=== PATIENT | male | born 1940 | race Caucasian/White ===

== ENCOUNTER 2017-02-26 21:06 | Outpatient (CLI) | payer MEDICARE ==
[~2017-02-26 21:06] MED LIST: ACETONIDE CREAM; ALLERGY SHOTS INJ; ASP81CT; ASPI-875 PO; ATN50T; Amiodarone Hcl PO; Atorvastatin Calcium PO; CALC-671 PO; CARB1DRO OU; CEPH-507 PO; CETI-156 PO; CETI10CA PO; CETI10TA17 PO; CIME200T86 PO; CIME300T49 PO; CLOB15CR2 TP; CORTISONE TP; CYCL10TA9 PO; DGX.125T PO; DOCU-143 PO; ENLP10T; FAMO20TA73 PO; FAMO40OR3 PO; HCT25T PO; HYDR-3156 PO; IRBE300T9 PO; KCL10CCR; KCL20TCR PO; LACT1CAP66 PO; LISI10TA2 PO; LISI40TA PO; LOSARTAN; LRT10T; LVT.1T PO; METO25TA PO; METO5TAB75 PO; MULT-974 PO; NFBIOT1000; NFD60TCR; NFNEB10T PO; OMEG1CAP24 PO; OXYC-197 PO; PNT40TEC PO; PRAS10TA6 PO; PRED2.5T4 PO; PRED5TAB PO; Rivaroxaban PO; SMV10T; SMV20T PO; TICA90TA PO; TR1C15 TOP; TR1O15; TRAM-21 PO; TRAM50TA2 PO
== END 2017-02-27 05:55 | disposition home or self-care (01) ==
LOC: SLEEP 21:06
PROVIDERS: ATTEND Nurse Practitioner Family
DX: G47.33 Obstructive sleep apnea (adult) (pediatric) (principal); G47.31 Primary central sleep apnea
CPT/HCPCS: 95811

== ENCOUNTER → 2017-04-21 | Outpatient (CLI) | payer MEDICARE | LOC: RAD 12:30 | PROVIDERS: ATTEND Otolaryngology Otolaryngology/Facial Plastic Surgery | DX: G47.33 Obstructive sleep apnea (adult) (pediatric) (principal) ==

== ENCOUNTER → 2017-06-09 | Outpatient (CLI) | payer MEDICARE | LOC: CARD 07:38 | PROVIDERS: ATTEND Physician Assistant | DX: I48.0 Paroxysmal atrial fibrillation (principal); R00.1 Bradycardia, unspecified; I25.10 Atherosclerotic heart disease of native coronary artery without angina pectoris; R53.83 Other fatigue | CPT/HCPCS: 93306 ==

== ENCOUNTER → 2017-06-25 | Outpatient (CLI) | payer MEDICARE ==
[~2017-06-25] MED LIST changes: +CATHETER FLUSH 10 ML SYR IV PRN; +REGADENOSON 0.4 MG/5 ML SYR (LEXISCAN) IV ONE
[2017-06-25 09:04] VITALS: BP 146/73
[2017-06-25 09:14] VITALS: BP 151/66
[2017-06-25 09:17] VITALS: BP 152/73
--- NOTE | 2017-06-26 08:31 | STRESS TEST ---
DATE OF SERVICE: LEXISCAN MYOVEIW STRESS REPORT REFERRING PHYSICIAN: Dr. Cevallos Baseline heart rate is 51. Baseline blood pressure 146/73. Baseline EKG is sinus rhythm with no ischemic changes. In summary, the patient was injected with 10.67 mCi of technetium-99 Myoview and the resting images were obtained. Then, the patient received 0.4 mg of LexiScan followed by 30.3 mCi of technetium-99 Myoview. Throughout the test, there were no EKG changes. The resting and stress images were reviewed and compared in the short axis, horizontal, long axis, and vertical long axis views. Review of the images showed fixed defect involving the true apex, mild reversible ischemia involving the mid to apical anterolateral wall and inferolateral wall. SSS is 9, SDS 5, TID value 0.86. On the gated images, the left ventricle appeared to be in normal size. The apex is montrell normally. Calculated ejection fraction is 66%. CONCLUSION: 1. The patient tolerated LexiScan well. 2. Fixed defect involving the true apex with mild ischemia involving the mid to apical anterolateral and inferolateral wall. 3. Normal left ventricular size with normal contractility. The apex is montrell normally. Calculated ejection fraction 66%. Job ID: [id number] DocumentID: [id number] Dictated Date: 06/25/2017 14:09:51 Field Service Technician Poultry Date: 06/25/2017 14:46:09 Dictated By: CEE GRAHAM MD
== END ==
LOC: CARD 07:13
PROVIDERS: ATTEND Physician Assistant
DX: I48.0 Paroxysmal atrial fibrillation (principal); R00.1 Bradycardia, unspecified; I25.10 Atherosclerotic heart disease of native coronary artery without angina pectoris; R53.83 Other fatigue
CPT/HCPCS: 78452; 93017

== ENCOUNTER 2017-11-05 09:21 | Emergency (ER) | payer MEDICARE ==
[~2017-11-05] VITALS: Ht 177.8 cm; Wt 83.9 kg
[~2017-11-05 09:21] MED LIST changes: -CATHETER FLUSH 10 ML SYR IV PRN; -REGADENOSON 0.4 MG/5 ML SYR (LEXISCAN) IV ONE
[2017-11-05 10:06] LABS: BASOPHILS % (AUTO) 1 % (0-10); EOSINOPHILS # (AUTO) 0.2 10^3/uL (0.0-0.3); EOSINOPHILS % (AUTO) 3 % (0-10); HEMATOCRIT 36 % (40-54); HEMOGLOBIN 12.1 G/DL (13.3-17.7); LYMPHOCYTES # (AUTO) 1.2 X 10^3 (1.0-4.0); LYMPHOCYTES % (AUTO) 15 % (12-44); MEAN CORPUSCULAR HEMOGLOBIN 30 PG (25-34); MEAN CORPUSCULAR HGB CONC 34 G/DL (32-36); MEAN CORPUSCULAR VOLUME 88 FL (80-99); MEAN PLATELET VOLUME 9.3 FL (7.4-10.4); MONOCYTES # (AUTO) 0.8 X 10^3 (0.0-1.0); MONOCYTES % (AUTO) 10 % (0-12); NEUTROPHILS # (AUTO) 5.8 X 10^3 (1.8-7.8); NEUTROPHILS % (AUTO) 72 % (42-75); PLATELET COUNT 296 10^3/uL (130-400); RED BLOOD COUNT 4.04 10^6/uL (4.35-5.85); RED CELL DISTRIBUTION WIDTH 13.6 % (10.0-14.5); WHITE BLOOD COUNT 8.1 10^3/uL (4.3-11.0)
--- NOTE | 2017-11-05 10:16 | ED General ---
General Chief Complaint: Cardiac/General Problems Stated Complaint: LOW BP Nursing Triage Note: ARRIVED VIA AMB TO ROOM 05. STATES HE TOOK HIS BP MED THIS AM THEN AT 0800 HE STARTED TO FEEL LIGHT HEADED ET BP WAS LOW. STATES HE NO LONGER FEELS LIGHT HEADED. Nursing Sepsis Screen: No Definite Risk Source of Information: Patient, Spouse History of Present Illness Time Seen by Provider: 09:35 Initial Comments PT ARRIVES VIA POV FROM HOME STATES HIS BLOOD PRESSURE HAS BEEN LOW THIS MORNING STATES HE TOOK ALL HIS REGULAR MORNING MEDICATIONS AROUND 0730, THEN NOTICED HIS BP WAS LOW BETWEEN 0800 AND 0830--MULTIPLE READINGS OF 83/53, 67/46, 75/46, 69/44 PT STATES HE FELT SLIGHTLY LIGHT HEADED AND LOW ENERGY THIS AM, BUT STATES HE HAS "BEEN HAVING ROUGH NIGHTS" SINCE HE BIT THE INSIDE OF HIS MOUTH ON FRIDAY, AND PAIN SEEMS TO BE WORSE AT NIGHT--LEFT SIDE OF FACE WAS SWOLLEN, BUT NOT NOW. SAW DENTIST ON Friday11/03/17--NO RX OR TREATMENT GIVEN. ALL THOSE SYMPTOMS OF LIGHTHEADEDNESS AND DECREASED ENERGY HAVE NOW RESOLVED NO CHEST PAIN NO SHORTNESS OF BREATH NO PALPITATIONS--HAS HISTORY OF ATRIAL FIBRILLATION AND IS ON ASPIRIN AND XARELTO NO SWEATS NO NAUSEA/VOMITING NO RECENT ILLNESS, FEVER, ETC. NO HEADACHE OR VISION CHANGES NO PARESTHESIAS OR MOTOR DEFICITS PT HAS HISTORY OF THIS SAME PROBLEM, AND HAS CORRECTED ITSELF IN AN HOUR, WHICH IS WHAT IT HAS DONE TODAY THIS IS NOT ANY DIFFERENT THAN WHAT HE HAS HAD IN THE PAST CALLED 'S OFFICE THIS AM, AND THEY TOLD HIM TO COME TO ER. PCP: SOLAR FABRICATION TECHNICIAN: DR. GRAHAM Allergies and Home Medications Allergies Coded Allergies: Iodinated Contrast Media - IV Dye (Verified Allergy, Unknown, 08/25/15) amlodipine (Verified Allergy, Unknown, 07/19/14) diltiazem (Verified Allergy, Unknown, 07/19/14) merbromin (Verified Allergy, Unknown, 12/28/08) neomycin (Verified Allergy, Unknown, 12/28/08) nifedipine (Verified Allergy, Unknown, 07/19/14) thimerosal (Verified Allergy, Unknown, 12/28/08) Uncoded Allergies: BESYLATE (Allergy, Unknown, 07/19/14) Home Medications Aspirin 81 Mg Tablet., 81 MG PO HS, (Reported) Calcium Carbonate/Vitamin D3 1 Each Tablet, 1 EACH PO DAILY, (Reported) Cephalexin 500 Mg Capsule, 500 MG PO TID, #21 Ref 0 Prescribed by: LEORA GUZMAN on 08/27/152352 Cetirizine Hcl 10 Mg Capsule, 10 MG PO BID, (Reported) Cyclobenzaprine HCl 10 Mg Tablet, 10 MG PO Q8H PRN for SPASMS, #14 Ref 0 Prescribed by: LEORA GUZMAN on 08/27/152352 Docusate Sodium 100 Mg Capsule, 100 MG PO DAILY, #30 Prescribed by: JEAN LCAUDE LANGLEY on 08/25/15453 Famotidine 20 Mg Tablet, 20 MG PO BID, (Reported) Hydralazine Hcl 25 Mg Tablet, 25 MG PO TID, (Reported) Hydrochlorothiazide 25 Mg Tab, 25 MG PO DAILY, (Reported) Irbesartan 300 Mg Tablet, 300 MG PO DAILY, (Reported) Lactobacillus Combination No.4 1 Each Capsule, 1 CAP PO 1200, (Reported) Levothyroxine Sodium 100 Mcg Tablet, 100 MCG PO DAILY, (Reported) Lisinopril 40 Mg Tablet, 40 MG PO DAILY, (Reported) Metoclopramide HCl 5 Mg Tablet, 5-10 MG PO Q6H PRN for NAUSEA, #30 Ref 0 Prescribed by: LEORA GUZMAN on 08/27/152352 Metoprolol Succinate 25 Mg Tab.sr.24h, 25 MG PO DAILY, (Reported) Multivitamin 1 Each Tablet, 1 TAB PO NOON, (Reported) Oxycodone HCl/Acetaminophen 1 Each Tablet, 1 EACH PO Q4H PRN for PAIN, #30 Prescribed by: JEAN CLAUDE LANGLEY on 08/25/15453 Pantoprazole Sod 40 Mg Tab, 40 MG PO DAILY@0700, #30 Ref 3 Prescribed by: CEE GRAHAM on 12/07/14 1016 Potassium Chloride 20 Meq Tab, 10 MEQ PO DAILY@0700, #30 Ref 3 Prescribed by: CEE GRAHAM on 12/07/14 1016 Prednisone 5 Mg Tablet, 4 MG PO UD, (Reported) Tramadol HCl 50 Mg Tablet, 1-2 TAB PO Q4H PRN for PAIN, #40 Ref 0 Prescribed by: LEORA GUZMAN on 08/27/152352 [Amiodarone Hcl] 200 MG TAB, 400 MG PO BID, #60 Ref 2 Prescribed by: CEE GRAHAM on 12/07/14 1016 [Atorvastatin Calcium] 80 MG TABLET, 80 MG PO HS, #30 Ref 3 Prescribed by: CEE GRAHAM on 12/07/14 1016 [Rivaroxaban] 20 MG TABLET, 20 MG PO DAILY@1700, #30 Ref 3 Prescribed by: CEE GRAHAM on 12/07/14 1016 Constitutional: see HPI, dizziness, malaise, weakness EENTM: see HPI Respiratory: no symptoms reported Cardiovascular: see HPI Gastrointestinal: no symptoms reported Genitourinary: no symptoms reported Musculoskeletal: no symptoms reported Skin: no symptoms reported Psychiatric/Neurological: No Symptoms Reported, Denies Headache, Denies Numbness, Denies Paresthesia, Denies Seizure, Denies Tingling, Denies Tremors, Denies Weakness Hematologic/Lymphatic: No Symptoms Reported Immunological/Allergic: no symptoms reported Past Lhfmtnm-Pyqmhv-Prmzwf Hx Patient Social History Alcohol Use: Denies Use Recreational Drug Use: No Smoking Status: Never a Smoker Recent Foreign Travel: No Contact w/Someone Who Travel: No Recent Infectious Disease Expo: No Recent Hopitalizations: No Immunizations Up To Date Tetanus Booster (TDap): Unknown Date of Pneumonia Vaccine: Sep 01, 2007 Date of Influenza Vaccine: Jul 27, 2014 Seasonal Allergies Seasonal Allergies: Yes Surgeries History of Surgeries: Yes (STENT) Surgeries: Cardiac, Coronary Stent Respiratory History of Respiratory Disorde: Yes (ALLERGIES THAT LEADS TO ASTHMA AT TIMES) Respiratory Disorders: Asthma Cardiovascular History of Cardiac Disorders: Yes (STENT) Cardiac Disorders: Atrial Fibrillation, Coronary Artery Disease, Heart Attack, High Cholesterol, Hypertension Neurological History of Neurological Disord: No Genitourinary History of Genitourinary Disor: No Gastrointestinal History of Gastrointestinal Di: Yes Gastrointestinal Disorders: Gastroesophageal Reflux, Diverticulosis Musculoskeletal History of Musculoskeletal Dis: No Endocrine History of Endocrine Disorders: Yes Endocrine Disorders: Hypothyroidsim HEENT History of HEENT Disorders: Yes Hearing Impairment: Hard of Hearing Cancer History of Cancer: No Psychosocial History of Psychiatric Problem: No Integumentary History of Skin or Integumenta: Yes Skin/Integumentary Disorders: Eczema Blood Transfusions History of Blood Disorders: No Family Medical History Significant Family History: No Pertinent Family Hx Family Medial History: Family history: Arthritis 09 BROTHER 09 SISTER Family history: Diabetes mellitus 03 FATHER 09 SISTER 09 SISTER 09 SISTER Family history: Gastrointestinal disease 09 SISTER (H.H., ACID REFLUX) Family history: Glaucoma 03 FATHER Family history: Hypertension 03 FATHER 09 BROTHER 09 SISTER 09 SISTER Headache 09 SISTER 09 SISTER History of - respiratory disease 09 BROTHER (COPD) 09 SISTER (asthma alergies) Hypercholesterolemia 09 BROTHER 09 SISTER Malignant neoplasm of lung 03 FATHER Stroke 09 SISTER Visual impairment 03 FATHER 03 MOTHER 09 BROTHER 09 BROTHER 09 SISTER 09 SISTER 09 SISTER Physical Exam Vital Signs Vital Sign - Last 12Hours 11/05/17 09:23 Temp 98.0 Pulse 59 Resp 18 B/P (MAP) 133/70 (91) Pulse Ox 98 Capillary Refill : Less Than 3 Seconds General Appearance: No Apparent Distress, WD/WN HEENT: PERRL/EOMI, Other (HEALING WOUND TO LEFT BUCCAL MUCOSA WITH MILD SWELLING AROUND IT, BUT NO ERYTHEMA OR SIGNS OF INFECTION) Neck: Full Range of Motion, Normal Inspection, Non Tender, Supple Respiratory: Normal Breath Sounds, No Accessory Muscle Use, No Respiratory Distress Cardiovascular: Regular Rate, Rhythm, No Edema, No JVD, No Murmur, Normal Peripheral Pulses Back: Normal Inspection, No CVA Tenderness, No Vertebral Tenderness Extremity: Normal Capillary Refill, Normal Inspection, Normal Range of Motion, Non Tender, No Calf Tenderness, No Pedal Edema Neurologic/Psychiatric: Alert, Oriented x3, No Motor/Sensory Deficits, Normal Mood/Affect, 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 Norm as Tested Skin: Normal Color, Warm/Dry Progress/Results/Core Measures Suspected Sepsis Recent Fever Within 48 Hours: No Infection Criteria Present: None New/Unexplained Altered Menta: No Sepsis Screen: No Definite Risk Sepsis Diagnosis: SIRS Temperature:98.0 Pulse: 59 Respiratory Rate: 18 Laboratory Tests 11/05/17 10:00: White Blood Count 8.1 Blood Pressure 133 /70 Mean: 91 Laboratory Tests 11/05/17 10:00: Creatinine 1.44H, INR Comment 1.3, Platelet Count 296, Total Bilirubin 0.4 Results/Orders Lab Results Laboratory Tests Test 11/05/17 10:00 Range/Units White Blood Count 8.1 4.3-11.0 10^3/uL Red Blood Count 4.04 L 4.35-5.85 10^6/uL Hemoglobin 12.1 L 13.3-17.7 G/DL Hematocrit 36 L 40-54 % Mean Corpuscular Volume 88 80-99 FL Mean Corpuscular Hemoglobin 30 25-34 PG Mean Corpuscular Hemoglobin Concent 34 32-36 G/DL Red Cell Distribution Width 13.6 10.0-14.5 % Platelet Count 296 130-400 10^3/uL Mean Platelet Volume 9.3 7.4-10.4 FL Neutrophils (%) (Auto) 72 42-75 % Lymphocytes (%) (Auto) 15 12-44 % Monocytes (%) (Auto) 10 0-12 % Eosinophils (%) (Auto) 3 0-10 % Basophils (%) (Auto) 1 0-10 % Neutrophils # (Auto) 5.8 1.8-7.8 X 10^3 Lymphocytes # (Auto) 1.2 1.0-4.0 X 10^3 Monocytes # (Auto) 0.8 0.0-1.0 X 10^3 Eosinophils # (Auto) 0.2 0.0-0.3 10^3/uL Basophils # (Auto) 0.0 0.0-0.1 10^3/uL Prothrombin Time 15.8 H 12.2-14.7 SEC INR Comment 1.3 0.8-1.4 Activated Partial Thromboplast Time 47 H 24-35 SEC Sodium Level 139 135-145 MMOL/L Potassium Level 4.9 3.6-5.0 MMOL/L Chloride Level 104 98-107 MMOL/L Carbon Dioxide Level 26 21-32 MMOL/L Anion Gap 9 5-14 MMOL/L Blood Urea Nitrogen 28 H 7-18 MG/DL Creatinine 1.44 H 0.60-1.30 MG/DL Estimat Glomerular Filtration Rate 48 BUN/Creatinine Ratio 19 Glucose Level 109 H 70-105 MG/DL Calcium Level 9.1 8.5-10.1 MG/DL Total Bilirubin 0.4 0.1-1.0 MG/DL Aspartate Amino Transf (AST/SGOT) 27 5-34 U/L Alanine Aminotransferase (ALT/SGPT) 34 0-55 U/L Alkaline Phosphatase 46 40-136 U/L Myoglobin 61.2 10.0-92.0 NG/ML Troponin I < 0.30 <0.30 NG/ML Total Protein 6.6 6.4-8.2 GM/DL Albumin 3.7 3.2-4.5 GM/DL My Orders Orders - YENNY HARRISON DO Saline Lock/Iv-Start (11/05/17 09:36) Ekg Tracing (11/05/17 09:36) Monitor-Rhythm Ecg Trace Only (11/05/17 09:36) Cbc With Automated Diff (11/05/17 09:36) Comprehensive Metabolic Panel (11/05/17 09:36) Protime With Inr (11/05/17 09:36) Partial Thromboplastin Time (11/05/17 09:36) Troponin I (11/05/17 09:36) Myoglobin Serum (11/05/17 09:36) Saline Lock/Iv-Start (11/05/17 10:33) Ns Iv 1000 Ml (Sodium Chloride 0.9%) (11/05/17 10:33) Vital Signs/I&O Vital Sign - Last 12Hours 11/05/17 09:23 Temp 98.0 Pulse 59 Resp 18 B/P (MAP) 133/70 (91) Pulse Ox 98 Capillary Refill : Less Than 3 Seconds Blood Pressure Mean: 91 Progress Note : Progress Note BP READINGS ALL > 100 SYSTOLIC DURING ER STAY AND PT HAD NO SYMPTOMS OF ANY KIND DURING ER STAY ECG Initial ECG Impression Time: 09:45 Initial ECG Rate: 56 Initial ECG Rhythm: Normal Sinus Initial ECG Impression: Normal Departure Impression Impression: Primary Impression: Transient hypotension Additional Impression: Dehydration Disposition: 01 HOME, SELF-CARE Condition: Improved Departure-Patient Inst. Referrals: CEE GRAHAM MD, JOHN D MD (PCP/Family) Primary Care Physician Patient Instructions: Dehydration, Adult (DC), Low Blood Pressure (DC) Add. Discharge Instructions: CONTINUE YOUR CURRENT MEDICATIONS PRESCRIBED INCREASE YOUR FLUID INTAKE--DRINK ENOUGH SO YOU ARE URINATING EVERY 2-3 HOURS WHILE AWAKE FOLLOW UP WITH DR. GRAHAM THIS WEEK FOR FURTHER CARE All discharge instructions reviewed with patient and/or family. Voiced understanding. YENNY HARRISON DO Nov 05, 2017 10:16
[2017-11-05 10:20] LABS: INR 1.3 (0.8-1.4); PROTHROMBIN TIME PATIENT 15.8 SEC (12.2-14.7)
[2017-11-05 10:29] LABS: ALANINE AMINOTRANSFERASE 34 U/L (0-55); ALBUMIN 3.7 GM/DL (3.2-4.5); ALKALINE PHOSPHATASE 46 U/L (40-136); BILIRUBIN,TOTAL 0.4 MG/DL (0.1-1.0); BUN/CREATININE RATIO 19; CALCIUM 9.1 MG/DL (8.5-10.1); CARBON DIOXIDE 26 MMOL/L (21-32); CHLORIDE 104 MMOL/L (98-107); CREATININE SERUM 1.44 MG/DL (0.60-1.30); GFR ESTIMATED 48; GLUCOSE 109 MG/DL (70-105); POTASSIUM 4.9 MMOL/L (3.6-5.0); SODIUM 139 MMOL/L (135-145); TOTAL PROTEIN 6.6 GM/DL (6.4-8.2)
[2017-11-05] MEDS ORDERED: NS IV 1000 ML 1,000 ML IV ONE (10:33)
[2017-11-05 10:37] LABS: MYOGLOBIN SERUM 61.2 NG/ML (10.0-92.0)
[2017-11-05 12:42] VITALS: BP 139/75
== END 2017-11-05 12:42 | disposition home or self-care (01) ==
LOC: EDUNIT# 09:21 → ER 09:23
DX: I95.9 Hypotension, unspecified (principal); E86.0 Dehydration; J45.909 Unspecified asthma, uncomplicated; I48.91 Unspecified atrial fibrillation; I25.2 Old myocardial infarction; K21.9 Gastro-esophageal reflux disease without esophagitis; I10 Essential (primary) hypertension; E03.9 Hypothyroidism, unspecified; E78.00 Pure hypercholesterolemia, unspecified; I25.10 Atherosclerotic heart disease of native coronary artery without angina pectoris; Z79.82 Long term (current) use of aspirin; Z95.5 Presence of coronary angioplasty implant and graft; Z87.19 Personal history of other diseases of the digestive system; Z80.1 Family history of malignant neoplasm of trachea, bronchus and lung; Z82.49 Family history of ischemic heart disease and other diseases of the circulatory system
CPT/HCPCS: 36415; 80053; 83874; 84484; 85025; 85610; 85730; 93005; 93041; 96360

== ENCOUNTER → 2019-03-10 | Outpatient (CLI) | payer MEDICARE ==
[~2019-03-10] MED LIST changes: -OXYC-197 PO; +OXYC1TAB87 PO
== END ==
LOC: CARD 12:49
PROVIDERS: ATTEND Internal Medicine Cardiovascular Disease
DX: I25.10 Atherosclerotic heart disease of native coronary artery without angina pectoris (principal); R07.89 Other chest pain; R79.89 Other specified abnormal findings of blood chemistry; I10 Essential (primary) hypertension; E78.5 Hyperlipidemia, unspecified; K21.9 Gastro-esophageal reflux disease without esophagitis; I07.1 Rheumatic tricuspid insufficiency
CPT/HCPCS: 93306

== ENCOUNTER → 2020-03-13 | Outpatient (CLI) | payer MEDICARE ==
[~2020-03-13] VITALS: Ht 178 cm; Wt 84.0 kg
[~2020-03-13] MED LIST changes: +REGADENOSON 0.4 MG/5 ML SYR (LEXISCAN) IV ONE; -TRAM50TA2 PO; +TRM50T PO
[2020-03-13] MEDS: CATHETER FLUSH 10 ML SYR IV PRN ×2 (07:37→09:00)
[2020-03-13 08:59] VITALS: BP 138/82
--- NOTE | 2020-03-13 13:22 | STRESS TEST ---
DATE OF SERVICE: 03/13/2020 LEXISCAN MYOVIEW STRESS TEST REPORT REFERRING PHYSICIAN: Dr. Cveallos Baseline heart rate is 80, baseline blood pressure 160/70. Baseline EKG is sinus rhythm with no ischemic changes. In summary, the patient was injected with 10.11 mCi of technetium-99 Myoview and the resting images were obtained. Then, the patient received 0.4 mg of Lexiscan followed by 30.1 mCi of technetium-99 Myoview. Throughout the test, there were no EKG changes. The resting and stress images were reviewed and compared in the short axis, horizontal long axis and vertical long axis views. Review of the images showed diaphragmatic attenuation with mild decreased uptake at the inferior wall, fixed defect at the apex. No significant ischemia was noted. SSS is 1, SDS 1. TID value is 0.97. On the gated images, the left ventricle appeared to be normal size with mild hypokinesia at the anteroseptum. Calculated ejection fraction is 45%. CONCLUSION: 1. The patient tolerated the Lexiscan well. 2. Fixed defect at the apex, diaphragmatic attenuation with no significant ischemia or infarction. 3. Normal left ventricular size with mild hypokinesia of the anterior septum. Calculated ejection fraction is 45%. Job ID: [id number] DocumentID: [id number] Dictated Date: 03/13/2020 10:58:23 Help Desk Technician Date: 03/13/2020 13:21:09 Dictated By: CEE GRAHAM MD
== END ==
LOC: CARD 07:19
PROVIDERS: ATTEND Internal Medicine Cardiovascular Disease
DX: I48.0 Paroxysmal atrial fibrillation (principal); I10 Essential (primary) hypertension; I25.10 Atherosclerotic heart disease of native coronary artery without angina pectoris; R00.1 Bradycardia, unspecified
CPT/HCPCS: 78452; 93017

== ENCOUNTER → 2022-06-05 | Outpatient (CLI) | payer MEDICARE ==
[~2022-06-05] MED LIST changes: +CYCL10TA25 PO; -CYCL10TA9 PO; -REGADENOSON 0.4 MG/5 ML SYR (LEXISCAN) IV ONE
== END ==
LOC: CARD 14:18
PROVIDERS: ATTEND Internal Medicine Cardiovascular Disease
DX: I10 Essential (primary) hypertension (principal); I25.10 Atherosclerotic heart disease of native coronary artery without angina pectoris
CPT/HCPCS: 93306

== ENCOUNTER 2023-04-30 08:48 | Outpatient (CLI) | payer MEDICARE ==
[~2023-04-30] VITALS: Ht 175.3 cm; Wt 80.0 kg
[2023-04-30] MEDS ORDERED: IRBE75TA9 PO (10:21)
[2023-04-30] MEDS ORDERED: ASPI81TA16 PO (10:21)
[2023-04-30] MEDS ORDERED: LACT1CAP74 PO (10:21)
[2023-04-30] MEDS ORDERED: LEVO88TA54 PO (10:21)
[2023-04-30] MEDS ORDERED: FAMO20TA5 PO (10:21)
[2023-04-30] MEDS ORDERED: MULT-1136 PO (10:21)
[2023-04-30] MEDS ORDERED: DOFE250C3 PO (10:21)
[2023-04-30] MEDS ORDERED: POTA-169 PO (10:24)
[2023-04-30] MEDS ORDERED: RIVA20TA PO (10:24)
[2023-04-30] MEDS ORDERED: CHOL200074 PO (10:24)
[2023-04-30] MEDS ORDERED: ROSU10TA28 PO (10:24)
[2023-04-30] MEDS ORDERED: SPIR25TA5 PO (10:24)
== END 2023-04-30 10:26 | disposition home or self-care (01) ==
LOC: PREOP 08:48
PROVIDERS: ATTEND Internal Medicine
DX: Z01.818 Encounter for other preprocedural examination (principal)

== ENCOUNTER 2023-05-02 09:32 | Day surgery (SDC) | payer MEDICARE ==
--- NOTE | 2023-05-01 08:57 | HISTORY AND PHYSICAL ---
COLONOSCOPY HISTORY AND PHYSICAL HISTORY OF PRESENT ILLNESS: The patient is spry-appearing 82-year-old white male referred by Dr. Cevallos for diagnostic colonoscopy due to history of rectal bleeding. He has noted bright red blood, sometimes associated with constipation, but without associated pain in the stool. He reported previous colonoscopy about 8 years ago, at which time he did have per his previous account officer report unusual polyps. They did not recommend an early screening. He had one other colonoscopy where he had a polyp removed 20 years ago. He is not aware of any family history for colon cancer. Other than constipation, there have been no other bowel habit change. He denies abdominal pain or change in weight. PAST MEDICAL HISTORY: Significant for previous heart attack a number of years ago, which led to one stent placed on him number of years ago. He has a history of paroxysmal atrial fibrillation and is on Xarelto in addition to 81 mg aspirin daily. He has a history of hypertension and is on thyroid replacement for Bertha's thyroiditis. He reports no previous surgeries. FAMILY HISTORY: Pertinent for breast cancer in number of his sisters and vascular disease in his parents. He is not aware of any history of GI tract malignancy. He reports no history of heart failure associated with his ischemic heart disease. SOCIAL HISTORY: He is retired. No past smoking history. No significant alcohol intake. REVIEW OF SYSTEMS: CONSTITUTIONAL: Denies night sweats, chills, fever or change in weight. GASTROINTESTINAL: As noted in the HPI. PULMONARY: Denies cough, wheezing or shortness of breath. CARDIOVASCULAR: He has had no syncope, palpitations, chest pain, orthopnea, PND, or dyspnea on exertion. PHYSICAL EXAMINATION: GENERAL: Reveals a spry-appearing white male, younger than stated age. HEENT: Unremarkable except for some questionable mild pallor. Sclerae nonicteric. CHEST: Clear. CARDIOVASCULAR: Reveals regular rate and rhythm without murmur, S3, or S4. ABDOMEN: Soft, supple without mass, organomegaly, or tenderness. EXTREMITIES: No cyanosis, clubbing or edema. ASSESSMENT AND PLAN: The patient is being set up for diagnostic colonoscopy due to history of rectal bleeding with a past history of colon polyps. He will hold his aspirin after Wednesdays dose and stop his aspirin now. Prep instructions were given and questions were answered. I was unable to get an endoscopy time at [place] until mid May, so he will be done this week at [facility]. Thank you for the referral of this pleasant gentleman. Job ID: [id number] DocumentID: [id number] Dictated Date: 04/28/2023 15:50:52 Administrative Assistant Date: 04/28/2023 16:12:00 Dictated By: ANNE-MARIE CARRION MD [facility]
[~2023-05-02] VITALS: Ht 175.3 cm; Wt 80.0 kg
[~2023-05-02 09:32] MED LIST changes: +ASPI81TA16 PO; +CHOL200074 PO; +DOFE250C3 PO; +FAMO20TA5 PO; +IRBE75TA9 PO; +LACT1CAP74 PO; +LEVO88TA54 PO; +MULT-1136 PO; +POTA-169 PO; +RIVA20TA PO; +ROSU10TA28 PO; +SPIR25TA5 PO
[2023-05-02] MEDS ORDERED: LACTATED RINGERS 1,000 ML IV STA (09:50)
[2023-05-02 10:08] VITALS: BP 113/85
--- NOTE | 2023-05-02 10:21 | Pre-Op Note & Conscious Sedat ---
Pre-Operative Progress Note Date H&P Reviewed: May 02, 2023 Time H&P Reviewed: 10:20 History & Physical: H&P Reviewed, Patient Examed, No changes noted Pre-Op Diagnosis: rectal bleeding Moderate Sedation PreProcedure ASA Score 2 Airway Lungs Heart ASA score ASA 1: a normal healthy patient ASA 2: a patient with a mild systemic disease (mid diabetes, controlled hypertension, obesity ASA 3: a patient with a severe systemic disease that limits activity (angina, COPD, prior Myocardial infarction) ASA 4: a patient with an incapacitating disease that is a constant threat to life (CHF, renal failure) ASA 5: a moribund patient not expected to survive 24 hrs. (ruptured aneurysm) ASA 6: a declared brain- patient whose organs are being harvested. For emergent operations, add the letter E after the classification Mallampati Classification Grade 2 Sedation Plan Analgesia, Amnesia, Plan communicated to team members, Discussed options with patient/fam, Discussed risks with patient/fam The patient is an appropriate candidate to undergo the planned procedure, sedation, and anesthesia. The patient immediately re-assessed prior to indication. ANNE-MARIE CARRION MD May 02, 2023 10:21
[2023-05-02] MEDS ORDERED: PROPOFOL INJECTION 50 ML IV ONE (11:26)
[2023-05-02 11:30] VITALS: BP 115/61
[2023-05-02 11:35] VITALS: BP 118/63
[2023-05-02 11:40] VITALS: BP 109/56
--- NOTE | 2023-05-02 11:41 | Progress Note-Post Operative ---
Post-Procedure Note Physician (s)/Furnace Clerk (s) Physician ANNE-MARIE CARRION MD Pre-Procedure Diagnosis Pre-Procedure Diagnosis: rectal bleeding Post-Procedure Diagnosis Post-operative diagnosis: Prior to undergoing colonoscopy digital rectal evaluation was performed. Anal suture tone was normal and the perianal reflexes intact. Prostate is small and a nodular on digital inspection. No abnormalities were noted on digital inspection anal canal or distal rectal vault. The colonoscope was inserted into the rectum and under direct visualization advanced to the cecum. The cecum was identified by identification of the ileocecal valve and the cecal strap. Photographic documentation was obtained. Careful inspection was made as the colonoscope withdrawn. Quality the prep was good. Findings: Several grade 1 internal hemorrhoid complexes were noted with telangiectatic blood vessels in the anal canal the most likely source of this patient's small volume bright red blood per rectum. The rectum was unremarkable. Present in the mid and proximal sigmoid colon as well as descending colon were moderate number of medium to large sized diverticulum without evidence of diverticulitis. The remainder the descending colon splenic flexure transverse colon hepatic flexure and ascending colon were normal. A 4 mm periappendiceal adenomatous appearing polyp was noted it was removed via cold forceps considering the patient is on Xarelto and aspirin there was no subsequent blood loss. A/P 1. Some grade 1 internal hemorrhoid complexes with telangiectatic anal canal blood vessels noted the likely source of this patient's small volume bright red blood per rectum. He was warned that he will likely continue to have intermittent small-volume bright red blood and I would not recommend future surveillance colonoscopy for this reason considering age and medical comorbidities. Did discuss the importance of dietary factors to exercise hydration for prevention of constipation and trying to avoid straining at the stool. Patient did have moderate diverticular disease noted in the mid and proximal sigmoid colon as well as descending colon without evidence for diverticulitis. One 4 mm sessile polyp was removed via cold forceps in a periappendiceal location. I thank you for the furl this pleasant gentleman. Sincerely, Anne-Marie Carrion MD Cc: Dr. Tree Cevallos MD. ANNE-MARIE CARRION MD May 02, 2023 11:41
[2023-05-02 12:10] VITALS: BP 114/79
--- NOTE | 2023-05-02 14:01 | Anesthesia-General Post-Op ---
MAC Patient Condition Mental Status/LOC: Same as Preop Cardiovascular: Satisfactory Nausea/Vomiting: Absent Respiratory: Satisfactory Pain: Controlled Complications: Absent Post Op Complications Complications None Follow Up Care/Instructions Patient Instructions None needed. Anesthesiology Discharge Order Discharge Order Patient is doing well, no complaints, stable vital signs, no apparent adverse anesthesia problems. No complications reported per nursing. VENTURA STRATTON CRNA May 02, 2023 14:01
== END 2023-05-02 12:20 | disposition home or self-care (01) ==
LOC: ENDO 09:32
PROVIDERS: ATTEND Internal Medicine
DX: D12.1 Benign neoplasm of appendix (principal); K64.0 First degree hemorrhoids; K62.5 Hemorrhage of anus and rectum; K57.30 Diverticulosis of large intestine without perforation or abscess without bleeding; K62.7 Radiation proctitis; I48.0 Paroxysmal atrial fibrillation; E06.3 Autoimmune thyroiditis; G47.33 Obstructive sleep apnea (adult) (pediatric); Z79.890 Hormone replacement therapy; Z79.82 Long term (current) use of aspirin; Z79.01 Long term (current) use of anticoagulants; Z99.81 Dependence on supplemental oxygen
CPT/HCPCS: 88305